=== PATIENT | male | born 1980 | race Native Hawaiian/Other Pacific Islander ===

== ENCOUNTER 2022-06-04 08:57 | Emergency (ER) | payer MEDICAID, OTHER ==
[~2022-06-04] VITALS: Ht 182.9 cm; Wt 101.2 kg
[2022-06-04 09:05] VITALS: BP 138/92
--- NOTE | 2022-06-04 09:16 | ED Upper Extremity ---
General Chief Complaint: Upper Extremity Stated Complaint: RT HAND INJ Source: patient Exam Limitations: no limitations History of Present Illness Date Seen by Provider: Jun 04, 2022 Time Seen by Provider: 09:02 Initial Comments 42-year-old male with no pertinent past medical history coming in due to right wrist/forearm pain. He is right-hand dominant. He was at work 3 to 4 days ago which requires him to be outside, he was jumping a fence to get where he needed to go, landed on his right arm. Has had right forearm pain since then worse with movement, better with rest. Has not had any medicines, has drinking alcohol which helps. The pain is constant, throbbing, and mild to moderate. He is otherwise denying any other acute complaints. Allergies and Home Medications Allergies Coded Allergies: No Known Drug Allergies (Unverified , 06/04/22) Patient Home Medication List Home Medication List Reviewed: Yes Review of Systems Constitutional: No fever EENTM: no symptoms reported Respiratory: no symptoms reported Cardiovascular: no symptoms reported Gastrointestinal: no symptoms reported Genitourinary: no symptoms reported Musculoskeletal: see HPI Skin: no symptoms reported Psychiatric/Neurological: No Symptoms Reported All Other Systems Reviewed Negative Unless Noted: Yes Past Cogcbdl-Dtcpdh-Hshxug Hx Patient Social History Tobacco Use?: No Substance use?: No Alcohol Use?: Yes Past Medical History Surgeries: Yes (bicep tendon repair) Physical Exam Vital Signs Vital Signs - First Documented 06/04/22 09:05 Temp 36.6 Pulse 95 Resp 18 B/P (MAP) 138/92 (107) Pulse Ox 96 O2 Delivery Room Air Capillary Refill : Height, Weight, BMI Height: '" Weight: lbs. oz. kg; BMI Method: General Appearance: WD/WN, no apparent distress HEENT: PERRL/EOMI, normal ENT inspection, pharynx normal Neck: non-tender, full range of motion, supple, normal inspection Cardiovascular: regular rate, rhythm, no edema, no murmur Respiratory: chest non-tender, lungs clear, normal breath sounds, no respiratory distress, no accessory muscle use Gastrointestinal: normal bowel sounds, non tender, soft; No distended, No guarding, No rebound Back: normal inspection Shoulder: normal inspection, non-tender, no evidence of injury, normal ROM Elbow/Forearm: normal inspection, no evidence of injury, normal ROM Wrist: Yes normal inspection, Yes normal ROM, Yes bone tenderness (Along the mid to distal radius on the right) Hand: normal inspection, non-tender (No scaphoid tenderness), no evidence of injury, normal ROM Neurologic/Tendon: normal sensation, normal motor functions, normal tendon fu nctions Neurologic/Psychiatric: no motor/sensory deficits, alert, normal mood/affect Skin: normal color, warm/dry Lymphatic: no adenopathy Progress/Results/Core Measures Results/Orders My Orders Orders - GEETA PINEDA MD Forearm 2 View Right (06/04/22 09:14) Vital Signs/I&O 06/04/22 09:05 Temp 36.6 Pulse 95 Resp 18 B/P (MAP) 138/92 (107) Pulse Ox 96 O2 Delivery Room Air Progress Progress Note : Progress Note 42-year-old male with above history coming in due to right forearm pain. ABCs were intact and vitals were stable on presentation. He does have some swelling and tenderness over the right aspect of his forearm distal to mid near the radius. X-ray obtained and there is no fracture or dislocation. He does have a skin break right there where potentially he got nicked by the barbed wire or something in the brush. I suspect he could have developing infection and that is where the inflammation is coming from. We will put him on antibiotics and have him follow-up as an outpatient. Diagnostic Imaging Diagonstic Imaging: Xray Plain Films/CT/US/NM/MRI: forearm Comments [facility], [place] NAME: ZOE ZAZUETA [facility] REC#: [id number] PT STATUS: REG ER : 1980 PHYSICIAN: GEETA PINEDA MD ADMIT DATE: 06/04/22/ER FS Signed Date of Exam:06/04/22 FOREARM 2 VIEW RIGHT Indication: Right forearm pain 3 views of the right forearm show no fracture, dislocation or other acute abnormalities. IMPRESSION: Negative right forearm Dictated by: Dictated on workstation # [id number] Dict: 06/04/22926 Trans: 06/04/22926 TCB [id number] Interpreted by: ELIZABETH BROOKS MD Electronically signed by: ELIZABETH BROOKS MD 06/04/22926 Departure Impression Primary Impression: Cellulitis Qualified Codes: L03.113 - Cellulitis of right upper limb Disposition: 01 HOME, SELF-CARE Condition: Stable Departure-Patient Inst. Decision time for Depature: 10:05 Referrals: NO,LOCAL PHYSICIAN (PCP/Family) Primary Care Physician Patient Instructions: Cellulitis (Skin Infection), Adult ED Add. Discharge Instructions: I believe the opening in your skin has opened it up for infection. You will be on 2 different antibiotics for the next week. Take ibuprofen as needed for pain. Scripts Cephalexin (Cephalexin) 500 Mg Tablet 500 MG PO QID for 7 Days, #28 TAB Prov: GEETA PINEDA MD 06/04/22 Doxycycline Hyclate (Doxycycline Hyclate) 100 Mg Tablet 100 MG PO BID for 7 Days, #14 TAB 0 Refills Prov: GEETA PINEDA MD 06/04/22 Work/School Note: Work Release Form Date Seen in the Emergency Department: Jun 04, 2022 Return to Work: Jun 05, 2022 Restrictions: No Restrictions GEETA PINEDA MD Jun 04, 2022 09:16
--- NOTE | 2022-06-04 09:28 | Diagnostic Imaging Report ---
Indication: Right forearm pain 3 views of the right forearm show no fracture, dislocation or other acute abnormalities. IMPRESSION: Negative right forearm Dictated by: Dictated on workstation # [id number]
[2022-06-04] MEDS ORDERED: CEPH500T PO (10:06)
[2022-06-04] MEDS ORDERED: DOXY100T2 PO (10:06)
== END 2022-06-04 10:15 | disposition home or self-care (01) ==
LOC: ER FS 08:59
DX: L03.113 Cellulitis of right upper limb (principal)
CPT/HCPCS: 73090